=== PATIENT | female | born 1985 | race American Indian/Alaskan Native ===

== ENCOUNTER 2018-08-18 15:46 | Emergency (ER) | payer SELFPAY ==
[~2018-08-18] VITALS: Ht 154.9 cm; Wt 100.7 kg
[2018-08-18] MEDS ORDERED: HYDR1TAB94 PO (15:58)
[2018-08-18] MEDS ORDERED: TOPI25 PO (16:01)
[2018-08-18] MEDS ORDERED: LANS30EC PO (16:03)
[2018-08-18] MEDS ORDERED: OXYC5 (16:05)
[2018-08-18] MEDS ORDERED: Prednisone20 MG PO (17:05)
[2018-08-18] MEDS ORDERED: KETO10 PO (17:05)
== END 2018-08-18 17:37 | disposition home or self-care (01) ==
LOC: ER 15:46
DX: G89.29 Other chronic pain (principal); M54.2 Cervicalgia; Z88.2 Allergy status to sulfonamides; Z79.899 Other long term (current) drug therapy; Z87.891 Personal history of nicotine dependence; Z98.1 Arthrodesis status
CPT/HCPCS: 96372; 99283-25; J1885